=== PATIENT | female | born 1950 | race Caucasian/White ===

== ENCOUNTER 2022-07-12 10:29 | Inpatient (IN) ==
[2022-07-12] MEDS ORDERED: ALBUTEROL 2.5 MG/3 ML NEB RESP TX STA (10:55)
[2022-07-12 10:58] LABS: Basophils % 0.2 % (0.0-0.8); Hematocrit 39.5 VOL% (35.7-47.0); Hemoglobin 13.1 GM/DL (12.0-16.0); Immature Granulocytes % 0.3 %; Immature Granulocytes Absolute 0.04 #; Lymphocytes # 1.8 10*3/uL (1.4-4.0); Lymphocytes % 15.1 % (21.3-54.2); Mean Corpuscular HGB Conc 33.2 GM/DL (32-36); Mean Corpuscular Volume 91.2 FL (87-102); Mean Platelet Volume 10.4 FL (9.6-12.0); Monocytes # 0.7 10*3/uL (0.11-0.8); Monocytes % 5.8 % (1.7-12.7); Neutrophils % 78.6 % (38.7-73.9); Platelet Count 350 T/CUMM (130-400); Red Blood Count 4.33 MC/CUMM (3.8-5.5); Red Cell Distribution Width 13.7 % (9.3-17.3); White Blood Count 12.15 T/CUMM (4-12)
[2022-07-12 11:23] LABS: Alanine Aminotransferase 16 U/L (13-56); Albumin 3.5 G/DL (3.4-5.0); Alkaline Phosphatase 94 U/L (45-117); Aspartate Amino Transferase 28 U/L (0-37); Bilirubin,Total < 0.39 MG/DL (0.20-1.00); Blood Urea Nitrogen 29 MG/DL (7-18); Calcium 9.5 MG/DL (8.5-10.1); Carbon Dioxide 24 MMOL/L (21-32); Chloride 105 MMOL/L (98-107); Glucose 159 MG/DL (74-106); Osmolality,Calculated 278.1 MOS/KG (273-304); Potassium 3.9 MMOL/L (3.5-5.1); Sodium 135 MMOL/L (136-145); Total Protein 7.3 G/DL (6.4-8.2)
[2022-07-12 11:32] LABS: Anisocytosis 1+; Platelet Estimate Normal
[2022-07-12] MEDS ORDERED: ONDANSETRON 4 MG/2 ML VIAL IV PRN (14:22)
[2022-07-12] MEDS ORDERED: ACETAMINOPHEN 325 MG TABLET PO PRN (14:22)
[2022-07-12] MEDS ORDERED: traMADol 50 MG TABLET PO PRN (14:28)
[2022-07-12] MEDS ORDERED: ENOXAPARIN 60 MG/0.6 ML SYRINGE SUBCUT STA (16:07)
[2022-07-12] MEDS: SODIUM CHLORIDE 0.9% 1,000 ML IV SCH ×2 (17:34→19:38)
[2022-07-12] MEDS: ACETYLCYSTEINE 600 MG CAPSULE PO SCH ×2 (17:38→21:28)
[2022-07-12] MEDS: METOPROLOL TARTRATE 25 MG TABLET PO SCH ×2 (17:38→21:29)
[2022-07-12] MEDS: NITROGLYCERIN 2% OINT 1 INCH/GM PACK TOP SCH (17:38)
[2022-07-12] MEDS ORDERED: ACETYLCYSTEINE 600 MG CAPSULE PO SCH (21:00)
[2022-07-12] MEDS ORDERED: TICAGRELOR 90 MG TABLET PO ONE (21:00)
[2022-07-12] MEDS: AMOXICILLIN/CLAV 875 MG TABLET PO SCH (21:28)
[2022-07-13] MEDS: SODIUM CHLORIDE 0.9% 1,000 ML IV SCH ×3 (01:34→12:31)
[2022-07-13] MEDS: NITROGLYCERIN 2% OINT 1 INCH/GM PACK TOP SCH ×2 (01:35→09:35)
[2022-07-13] MEDS ORDERED: HEPARIN DRIP 25,000 UNITS/500 ML PREMIX IV SCH (03:00)
[2022-07-13] MEDS ORDERED: diphenhydrAMINE CAP 25 MG CAPSULE PO ONE (06:00)
[2022-07-13] MEDS ORDERED: DIAZEPAM 5 MG TABLET PO ONE (06:00)
[2022-07-13 06:04] LABS: Basophils % 0.5 % (0.0-0.8); Eosinophils # 0.1 10*3/uL (0.0-0.87); Eosinophils % 1.3 % (0.00-10.9); Hematocrit 33.1 VOL% (35.7-47.0); Hemoglobin 11.3 GM/DL (12.0-16.0); Immature Granulocytes % 0.2 %; Immature Granulocytes Absolute 0.02 #; Lymphocytes # 2.8 10*3/uL (1.4-4.0); Lymphocytes % 32.3 % (21.3-54.2); Mean Corpuscular HGB Conc 34.1 GM/DL (32-36); Mean Corpuscular Volume 92.7 FL (87-102); Mean Platelet Volume 11.2 FL (9.6-12.0); Monocytes # 0.7 10*3/uL (0.11-0.8); Monocytes % 7.7 % (1.7-12.7); Platelet Count 246 T/CUMM (130-400); Red Blood Count 3.57 MC/CUMM (3.8-5.5); White Blood Count 8.68 T/CUMM (4-12)
[2022-07-13 06:31] LABS: Alanine Aminotransferase 39 U/L (13-56); Alkaline Phosphatase 92 U/L (45-117); Aspartate Amino Transferase 106 U/L (0-37); Bilirubin,Total < 0.39 MG/DL (0.20-1.00); Blood Urea Nitrogen 28 MG/DL (7-18); Calcium 8.8 MG/DL (8.5-10.1); Carbon Dioxide 22 MMOL/L (21-32); Chloride 110 MMOL/L (98-107); Glucose 90 MG/DL (74-106); Osmolality,Calculated 286.3 MOS/KG (273-304); Potassium 4.1 MMOL/L (3.5-5.1); Sodium 141 MMOL/L (136-145); Total Protein 6.3 G/DL (6.4-8.2)
[2022-07-13 06:32] LABS: Calcium 8.9 MG/DL (8.5-10.1); Osmolality,Calculated 284.4 MOS/KG (273-304)
[2022-07-13 06:40] LABS: Risk Ratio 3.04
[2022-07-13 06:46] LABS: High Sensitive Troponin I* 2700.3 ng/L (0-54)
[2022-07-13] MEDS ORDERED: HEPARIN/NACL 0.9% 2 UNITS/ML 2,000 UNIT/1,000 ML BAG IV ONE (06:53)
[2022-07-13] MEDS ORDERED: HYDROmorphone 1 MG/1 ML SYRINGE ONE (07:20)
[2022-07-13] MEDS ORDERED: MIDAZOLAM 2 MG/2 ML VIAL ONE (07:21)
[2022-07-13] MEDS ORDERED: diphenhydrAMINE 50 MG/1 ML VIAL ONE (07:26)
[2022-07-13] MEDS ORDERED: ZALEPLON 5 MG CAPSULE PO PRN (08:07)
[2022-07-13] MEDS ORDERED: NITROGLYCERIN SL 0.4 MG TABLET SL PRN (08:07)
[2022-07-13] MEDS ORDERED: amLODIPine 10 MG TABLET PO SCH (09:00)
[2022-07-13] MEDS ORDERED: CYANOCOBALAMIN 500 MCG TABLET PO SCH (09:00)
[2022-07-13] MEDS ORDERED: ASPIRIN CHEW 81 MG TABLET PO SCH (09:00)
[2022-07-13] MEDS ORDERED: MEMANTINE 5 MG TABLET PO SCH (09:00)
[2022-07-13] MEDS ORDERED: LEVOTHYROXINE 125 MCG TABLET PO SCH (09:00)
[2022-07-13] MEDS ORDERED: ARIPiprazole 5 MG TABLET PO SCH (09:00)
[2022-07-13] MEDS ORDERED: LISINOPRIL/HCTZ 20-25 MG TABLET PO SCH (09:00)
[2022-07-13] MEDS ORDERED: NICOTINE 21 MG/24 HR PATCH TRANSDERM SCH (09:00)
[2022-07-13] MEDS ORDERED: PARoxetine 20 MG TABLET PO SCH (09:00)
[2022-07-13] MEDS ORDERED: ROSUVASTATIN 20 MG TABLET PO SCH (09:00)
[2022-07-13] MEDS: METOPROLOL TARTRATE 25 MG TABLET PO SCH (09:30)
[2022-07-13] MEDS: ACETYLCYSTEINE 600 MG CAPSULE PO SCH (09:30)
[2022-07-13] MEDS: AMOXICILLIN/CLAV 875 MG TABLET PO SCH (09:34)
[2022-07-13 12:25] VITALS: BP 153/70
[2022-07-26] MEDS ORDERED: CYANOCOBALAMIN 1000 MCG/1 ML VIAL IM SCH (09:00)
== END 2022-07-13 15:24 | disposition home or self-care (01) | DRG 281 ==
LOC: N.ED 10:29 → N.EDINP 10:29 → SUATTDRO 14:22 → N.2W 15:17 → N.TELES 07-13 13:39
PROVIDERS: ADMIT Internal Medicine; ATTEND Internal Medicine